=== PATIENT | female | born 1995 | race Caucasian/White ===

== ENCOUNTER 2021-01-16 11:06 | Emergency (ER) | payer OTHER ==
[2021-01-16 13:03] LABS: HEMOGLOBIN 14.1 gm/dl (12.3-15.3); RED BLOOD COUNT 4.58 M/UL (4.00-5.10); WHITE BLOOD COUNT 6.7 K/UL (4.5-11.0)
[2021-01-16 13:43] LABS: BUN/CREATININE RATIO 18 (0-10)
[2021-01-16] MEDS ORDERED: PROTONIX 40 MG40 MG PO (15:06)
== END 2021-01-16 15:13 | disposition home or self-care (01) ==
LOC: ER1 11:06
PROVIDERS: Physician Assistant Medical
DX: R10.13 Epigastric pain (principal); I10 Essential (primary) hypertension
CPT/HCPCS: 80053; 81001; 82150; 83690; 85025; 99284

== ENCOUNTER → 2021-03-15 | Outpatient (CLI) | payer OTHER ==
[~2021-03-15] MED LIST: HYDROCODON-ACE1 EAC4 PO; IBU600 MG PO; LEVOTHYROXINE125 MCG PO; LISINOPRIL10 MG PO; METFORMIN HCL500 MG PO; PRE-NATAL VITAMIN PO; PROTONIX 40 MG40 M1 PO; PROTONIX 40 MG40 MG PO
[2021-03-15 12:29] LABS: HEMOGLOBIN 11.9 gm/dl (12.3-15.3); RED BLOOD COUNT 4.06 M/UL (4.00-5.10); WHITE BLOOD COUNT 6.2 K/UL (4.5-11.0)
[2021-03-15 12:35] LABS: BUN/CREATININE RATIO 23 (0-10)
== END ==
LOC: OPSV2 11:26
PROVIDERS: Obstetrics & Gynecology
DX: Z01.818 Encounter for other preprocedural examination (principal); N92.0 Excessive and frequent menstruation with regular cycle; I10 Essential (primary) hypertension; Z79.899 Other long term (current) drug therapy; Z86.79 Personal history of other diseases of the circulatory system; E07.9 Disorder of thyroid, unspecified
CPT/HCPCS: 36415; 80053; 81001; 85025; 93005

== ENCOUNTER → 2021-03-17 | Day surgery (SDC) | payer OTHER | END | disposition home or self-care (01) | LOC: OR 05:33 | DX: N92.1 Excessive and frequent menstruation with irregular cycle (principal); N83.201 Unspecified ovarian cyst, right side; I10 Essential (primary) hypertension; E11.9 Type 2 diabetes mellitus without complications; Z98.51 Tubal ligation status; Z79.84 Long term (current) use of oral hypoglycemic drugs; Z79.899 Other long term (current) drug therapy | CPT/HCPCS: 82962; J1100; J2001; J2250; J2405; J2704; J2795; J3010; J7120 ==

== ENCOUNTER 2022-01-19 09:28 | Emergency (ER) | payer OTHER ==
[2022-01-19 10:27] LABS: RED BLOOD COUNT 2.94 M/UL (4.00-5.10); WHITE BLOOD COUNT 5.9 K/UL (4.5-11.0)
[2022-01-19 10:48] LABS: BUN/CREATININE RATIO 16 (0-10)
[2022-01-19] MEDS ORDERED: ZOFRAN ODT 4 MG4 MG SL (12:35)
== END 2022-01-19 13:50 | disposition home or self-care (01) ==
LOC: ER1 09:28
PROVIDERS: Emergency Medicine
DX: R06.02 Shortness of breath (principal); R11.0 Nausea; D64.9 Anemia, unspecified; I10 Essential (primary) hypertension; Z79.01 Long term (current) use of anticoagulants; Z51.81 Encounter for therapeutic drug level monitoring
CPT/HCPCS: 80048; 83880; 84703; 85025; 85610; 93005; 96374; 99285; J2405; Q9967

== ENCOUNTER → 2022-02-25 | Outpatient (CLI) | payer OTHER ==
[~2022-02-25] MED LIST changes: +ZOFRAN ODT 4 MG4 MG SL
[2022-02-25 20:32] LABS: RED BLOOD COUNT 2.99 M/UL (4.00-5.10); WHITE BLOOD COUNT 5.3 K/UL (4.5-11.0)
[2022-02-25 20:50] LABS: BUN/CREATININE RATIO 18 (0-10)
== END ==
LOC: LAB 19:33
PROVIDERS: Surgery
DX: Z01.812 Encounter for preprocedural laboratory examination (principal)
CPT/HCPCS: 80048; 85025; 85027